=== PATIENT | female | born 1980 | race Caucasian/White ===

== ENCOUNTER 2023-12-05 21:06 | Inpatient (IN) | payer BC, MEDICAID ==
[~2023-12-05] VITALS: Ht 154.9 cm; Wt 101.6 kg
[2023-12-05 21:31] LABS: BASOPHILS % 0.6 % (0.0-2.0); EOSINOPHILS % 1.8 % (0.0-5.0); HEMATOCRIT. 39.4 % (36.0-48.0); HEMOGLOBIN. 12.5 g/dL (12.0-16.0); LYMPHOCYTES % 32.5 % (20.0-50.0); MEAN CORPUSCULAR HGB CONC 31.7 g/dL (31.0-37.0); MEAN CORPUSCULAR VOLUME 88.4 fL (81.0-99.0); MEAN PLATELET VOLUME 9.1 fl (7.4-10.4); MONOCYTES % 6.6 % (2.0-8.0); NEUTROPHILS % 58.5 % (40.0-76.0); PLATELET 381 x1000/uL (130-400); RED BLOOD CELL COUNT 4.46 mill/uL (4.2-5.4); RED CELL DISTRIBUTION WIDTH 15.7 % (11.6-14.6); WHITE BLOOD COUNT 10.7 x1000/uL (4.5-11.0)
[2023-12-05 21:39] LABS: CARBON DIOXIDE 22 mEq/L (21-32); CHLORIDE 108 mEq/L (98-107); POTASSIUM 3.9 mEq/L (3.5-5.1); SODIUM 139 mEq/L (136-145)
[2023-12-05 21:40] LABS: CALCIUM 9.5 mg/dL (8.7-10.4)
[2023-12-05 21:44] LABS: CREATININE 0.9 mg/dL (0.6-1.0)
[2023-12-05 21:45] LABS: GLUCOSE 113 mg/dL (70-105); UREA NITROGEN BLOOD 11 mg/dL (9-23)
[2023-12-05 21:46] LABS: ALANINE AMINOTRANSFERASE 14 IU/L (10-49); ALBUMIN 4.4 g/dL (3.2-4.8); ASPARTATE AMINOTRANSFERASE 15 IU/L (<34)
[2023-12-05 21:47] LABS: BILIRUBIN TOTAL 0.3 mg/dL (0.1-1.0); PROTEIN TOTAL 7.1 g/dL (6.0-8.3)
[2023-12-05 21:55] LABS: BILIRUBIN DIRECT < 0.1 mg/dL (<=3.0)
[2023-12-05] MEDS: ONDANSETRON HCL 4MG/2ML INJ IV ONE (22:43)
[2023-12-05] MEDS: KETOROLAC 15MG/ML VIAL IV ONE (22:43)
[2023-12-05] MEDS: SODIUM CHLORIDE 0.9% 1,000 ML IV ONE (22:43)
[2023-12-05 23:02] LABS: HCG SCREEN NEGATIVE
[2023-12-06 00:53] LABS: CLARITY URINE CLEAR (CLEAR); COLOR URINE YELLOW (YELLOW); GLUCOSE URINE NEGATIVE (NEGATIVE); KETONES URINE NEGATIVE (NEGATIVE); LEUKOCYTE ESTERASE URINE 1+ (NEGATIVE); NITRITE URINE NEGATIVE (NEGATIVE); OCCULT BLOOD URINE 3+ (NEGATIVE); PH URINE 7.5 (4.5-8.0); PROTEIN URINE TRACE (NEGATIVE)
[2023-12-06 01:58] LABS: RBC URINE 25-50 /hpf (0-2)
[2023-12-06 02:01] LABS: SQUAMOUS EPITHELIAL CELL URINE FEW /lpf (RARE/1+)
[2023-12-06 02:10] LABS: BACTERIA URINE 1+
[2023-12-06] MEDS ORDERED: GUAIFENESIN 200MG/10ML SUGAR FREE UDC PO PRN (03:45)
[2023-12-06] MEDS ORDERED: CLONIDINE 0.1MG TABLET PO PRN (03:45)
[2023-12-06] MEDS ORDERED: ONDANSETRON HCL 4MG/2ML INJ IV PRN (03:45)
[2023-12-06] MEDS ORDERED: NA PHOS,M-B/NA PHOS,DI-BA ENEMA 118ML PR PRN (03:45)
[2023-12-06] MEDS ORDERED: MAGNESIUM/ALUMINUM HYDROXIDE/SIMETHICONE 30ML UDC PO PRN (03:45)
[2023-12-06] MEDS: ENOXAPARIN 40MG/0.4ML SYR SUBCUT SCH ×2 (03:45→12:27)
[2023-12-06] MEDS ORDERED: DOCUSATE SODIUM 100MG CAPSULE PO PRN (03:45)
[2023-12-06] MEDS ORDERED: ACETAMINOPHEN 650MG/20.3ML UDC GT PRN (03:45)
[2023-12-06] MEDS ORDERED: IPRATROPIUM/ALBUTEROL 0.5-3(2.5)MG/3ML NEB HHN PRN (03:45)
[2023-12-06] MEDS: CEFTRIAXONE 1GM/50ML 50 ML IV SCH (04:43)
[2023-12-06] MEDS: DEXT 5%/0.9% NACL 1,000 ML IV SCH (04:44)
[2023-12-06] MEDS: PANTOPRAZOLE SODIUM 40 MG/VIAL IV SCH ×2 (04:44→12:27)
[2023-12-06] MEDS ORDERED: NALOXONE HCL 0.4MG/ML VIAL IV PRN (04:45)
[2023-12-06] MEDS ORDERED: METRONIDAZOLE 500 MG PREMIX 100 ML IV SCH (06:00)
[2023-12-06] MEDS: SODIUM CHLORIDE 0.9% 1,000 ML IV SCH (07:27)
[2023-12-06 09:59] VITALS: BP 123/75; PULSE 67; RESP 18; TEMP 36.418
[2023-12-06 10:07] VITALS: BP 123/75; PULSE 67; RESP 18; TEMP 36.418
[2023-12-06 12:00] VITALS: BP 126/74; PULSE 74; RESP 19; TEMP 36.89184; O2SAT 98
[2023-12-06] MEDS: MORPHINE SULFATE 2 MG/ML INJ (NOT FOR IM USE) IV PRN (12:35)
[2023-12-06 16:00] VITALS: BP 118/73; PULSE 96; RESP 18; TEMP 36.89184; O2SAT 97
[2023-12-06] MEDS: HYDROCODONE/ACETAMINOPHEN 5/325MG TABLET PO PRN (16:10)
[2023-12-06 20:00] VITALS: BP 100/62; PULSE 79; RESP 20; TEMP 36.89184; O2SAT 98
[2023-12-06] MEDS: ENOXAPARIN 30MG/0.3ML SYR SUBCUT SCH (21:45)
[2023-12-07] VITALS: BP 101/63; PULSE 81; RESP 19; TEMP 36.78072; O2SAT 100
[2023-12-07 04:00] VITALS: BP 102/67; PULSE 88; RESP 20; TEMP 36.9474; O2SAT 99
[2023-12-07] MEDS: ACETAMINOPHEN 325MG TABLET PO PRN (04:09)
[2023-12-07 06:14] LABS: CLARITY URINE CLEAR (CLEAR); COLOR URINE YELLOW (YELLOW); GLUCOSE URINE NEGATIVE (NEGATIVE); KETONES URINE NEGATIVE (NEGATIVE); LEUKOCYTE ESTERASE URINE TRACE (NEGATIVE); NITRITE URINE NEGATIVE (NEGATIVE); OCCULT BLOOD URINE 3+ (NEGATIVE); PH URINE 5.5 (4.5-8.0); PROTEIN URINE NEGATIVE (NEGATIVE); SPECIFIC GRAVITY URINE 1.016 (1.005-1.030)
[2023-12-07 07:17] LABS: *AMPHETAMINES SCREEN URINE PRESUMPTIVE POSITIVE (NEGATIVE); *BARBITURATES SCREEN URINE NEGATIVE (NEGATIVE); *BENZODIAZEPINES SCREEN URINE NEGATIVE (NEGATIVE); *COCAINE SCREEN URINE NEGATIVE (NEGATIVE); CANNABINOID URINE SCREEN NEGATIVE (NEGATIVE); ECSTASY MDMA SCREEN URINE CONF.TEST INDICATED (NEGATIVE); METHADONE URINE SCREEN NEGATIVE (NEGATIVE); OPIATES URINE SCREEN PRESUMPTIVE POSITIVE (NEGATIVE); PHENCYCLIDINE URINE SCREEN PRESUMTIVE POSITIVE (NEGATIVE)
[2023-12-07 07:29] LABS: BASOPHILS % 0.5 % (0.0-2.0); CARBON DIOXIDE 22 mEq/L (21-32); CHLORIDE 110 mEq/L (98-107); EOSINOPHILS % 2.2 % (0.0-5.0); HEMATOCRIT. 34.7 % (36.0-48.0); HEMOGLOBIN. 11.1 g/dL (12.0-16.0); LYMPHOCYTES % 36.4 % (20.0-50.0); MEAN CORPUSCULAR HEMOGLOBIN 28.1 pg (28.0-32.0); MEAN CORPUSCULAR HGB CONC 31.9 g/dL (31.0-37.0); MEAN CORPUSCULAR VOLUME 87.9 fL (81.0-99.0); MEAN PLATELET VOLUME 9.6 fl (7.4-10.4); NEUTROPHILS % 52.9 % (40.0-76.0); PLATELET 329 x1000/uL (130-400); POTASSIUM 3.5 mEq/L (3.5-5.1); RED BLOOD CELL COUNT 3.95 mill/uL (4.2-5.4); RED CELL DISTRIBUTION WIDTH 15.7 % (11.6-14.6); SODIUM 138 mEq/L (136-145); WHITE BLOOD COUNT 9.3 x1000/uL (4.5-11.0)
[2023-12-07 07:30] LABS: CALCIUM 8.4 mg/dL (8.7-10.4)
[2023-12-07 07:35] LABS: SQUAMOUS EPITHELIAL CELL URINE FEW /lpf (RARE/1+)
[2023-12-07 07:35] LABS: CREATININE 0.7 mg/dL (0.6-1.0); GLUCOSE 91 mg/dL (70-105); UREA NITROGEN BLOOD 6 mg/dL (9-23)
[2023-12-07 07:36] LABS: LDL CHOLESTEROL 41 mg/dL (5-100); TRIGLYCERIDE 120 mg/dL (0-150)
[2023-12-07 07:37] LABS: CHOLESTEROL 94 mg/dL (<200); HDL CHOLESTEROL 39 mg/dL (>65); PHOSPHORUS 3.4 mg/dL (2.5-4.9)
[2023-12-07 07:37] LABS: BACTERIA URINE TRACE
[2023-12-07 07:41] LABS: T4 FREE 1.23 ng/dL (0.89-1.76); THYROID STIMULATING HORMONE 2.01 uIU/mL (0.55-4.78)
[2023-12-07 08:00] VITALS: BP 114/78; PULSE 82; RESP 19; TEMP 36.28068; O2SAT 98
[2023-12-07 14:32] VITALS: BP 120/67; PULSE 88; TEMP 97.5; O2SAT 99
[2023-12-07] MEDS ORDERED: SULF1TAB48 MT (14:48)
[2023-12-07] MEDS ORDERED: AM250 PO (14:48)
[2023-12-08] MEDS ORDERED: IOHEXOL-350 100 ML BOTTLE ONE (14:04)
== END 2023-12-07 15:00 | disposition home or self-care (01) | DRG 694 ==
LOC: ER 21:06 → 6EST 12-06 02:30
PROVIDERS: ADMIT Internal Medicine; ATTEND Internal Medicine
DX: N20.0 Calculus of kidney (principal); N39.0 Urinary tract infection, site not specified; K81.0 Acute cholecystitis; Z68.41 Body mass index [BMI] 40.0-44.9, adult; I10 Essential (primary) hypertension; E66.01 Morbid (severe) obesity due to excess calories; F15.90 Other stimulant use, unspecified, uncomplicated; F17.210 Nicotine dependence, cigarettes, uncomplicated; F19.90 Other psychoactive substance use, unspecified, uncomplicated
CPT/HCPCS: 36415; 74176; 76705; 80048; 80061; 80076; 80305; 81003; 83735; 84100; 84439; 84443; 84703; 85025; 99285; J0696; J1650; J1885; J2270; J2405; J2470; J7030; Q9967